=== PATIENT | male | born 1975 | race Hispanic/Latino ===

== ENCOUNTER 2020-07-05 13:40 | Observation (INO) | payer OTHER ==
[~2020-07-05] VITALS: Ht 170.2 cm; Wt 102.1 kg
[2020-07-05] MEDS ORDERED: SODIUM CHLORIDE 0.9% 1000ML 1,000 ML IV SCH (14:15)
--- NOTE | 2020-07-05 14:21 | Emergency Department Note ---
History of Present Illnes History of Present Illness Chief Complaint: Neurological History of Present Illness This is a 44 year old male Chief Complaint Comment SINCE May, PATIENT HAS BEEN DIZZY AND DX WITH VERTIGO. GIVEN MECLIZINE THAT HAS NOT BEEN WORKING. POSITIVE NAUSEA, NO VOMITING. SEEN BY HIS DOCTOR, REFERED TO ENT WHO R/O VERTIGO AND THEN REFERED TO A NEUROLOGIST ON . THEY FEEL HE CAN NOT WAIT THAT LONG. ATTEMPTED TO GO TO WORK BUT WAS WALKING AND BUMPING INTO THINGS. PATIENT FOLLOWING COMMANDS. YESTERDAY BEGAN HAVING BILATERAL CHEST PAIN, WORSE WITH MOVEMENT. Historian: Patient Arrival Mode: Car Additional Treatment HOOK UP: NONE Equip Tech Required: No Onset (how long ago): week(s) (3) Location: Head Quality: Dizzy Radiation: Reports non-radiation Severity: severe Onset quality: gradual Duration (how long): week(s) (3) Progression: worsening Chronicity: new Context: Denies recent illness, Denies recent surgery Relieving factors: none Exacerbating factors: none Associated symptoms: Reports denies other symptoms Treatments prior to arrival: none Past Medical/Family History Physician Review I have reviewed the patient's past medical and family history. Any updates have been documented here. Past Medical History Recent Fever: No Clinical Suspicion of Infectio: No New/Unexplained Change in Ment: No Past Medical History: None Past Surgical History: None Social History Physically hurt or threatened: No Review of Systems Review of Systems Constitutional: Reports as per HPI EENTM: Reports no symptoms Cardiovascular: Reports no symptoms Respiratory: Reports no symptoms Gastrointestinal: Reports no symptoms Genitourinary: Reports no symptoms Musculoskeletal: Reports no symptoms Integumentary: Reports no symptoms Neurological: Reports as per HPI, Reports other (Dizzy) Psychological: Reports no symptoms Endocrine: Reports no symptoms Hematological/Lymphatic: Reports no symptoms Physical Exam Related Data Triage Vital Signs Vital Signs Date Time Temp Pulse Resp B/P (MAP) Pulse Ox O2 Delivery O2 Flow Rate FiO2 07/05/20 14:01 98.1 86 18 154/99 100 Room Air Vital signs reviewed: Yes Physical Exam CONSTITUTIONAL Constitutional: Present well-developed, Present well-nourished HENT HENT: Present normocephalic, Present atraumatic, Present oropharynx clear/moist, Present nose normal HENT L/R: Present left ext ear normal, Present right ext ear normal EYES Eyes: Reports PERRL, Reports conjunctivae normal NECK Neck: Present ROM normal PULMONARY Pulmonary: Present effort normal, Present breath sounds normal CARDIOVASCULAR Cardiovascular: Present regular rhythm, Present heart sounds normal, Present capillary refill normal, Present normal rate GASTROINTESTINAL Abdominal: Present soft, Present nontender, Present bowel sounds normal GENITOURINARY Genitourinary: Present exam deferred SKIN Skin: Present warm, Present dry MUSCULOSKELETAL Musculoskeletal: Present ROM normal NEUROLOGICAL Neurological: Present alert, Present oriented x 3, Present no gross motor or sensory deficits; Absent cranial nerve deficit, Absent abnormal coordination, Absent weakness PSYCHOLOGICAL Psychological: Present mood/affect normal, Present judgement normal Procedures 12 Lead ECG Interpretation ECG Interpretation : ECG: ECG 1 Date: Jul 05, 2020 Rhythm: sinus rhythm Rate: normal BPM: 87 QRS axis: normal ST segments normal: Yes T waves normal: Yes Clinical Impression: normal ECG Assessment & Plan Medical Decision Making MDM 44 y.o M presents for persistent dizziness w/ N/V. Multiple work ups in the past and no relief with meclizine. Exam is unremarkable, no FND, CN II-XII intact.CT head benign, labs WNL. Will admit for persistent dizziness, N/V. Discussed with Dr. Molina who has accepted. Reassessment Reassessment time: 14:21 Reassessment Dizzy Assessment & Plan Final Impression: (1) Vertigo Depart Disposition: ADMITTED Last Vital Signs Date Time Temp Pulse Resp B/P (MAP) Pulse Ox O2 Delivery O2 Flow Rate FiO2 07/05/20 14:01 98.1 86 18 154/99 100 Room Air Medications in the ED Sodium Chloride 1,000 ml @ 0 mls/hr Q0M IV ; Start 07/05/20 at 14:15; Stop 07/05/20 at 15:14; Status UNV KENDALL PERALES MD Jul 05, 2020 14:21
[2020-07-05 15:17] LABS: BASOPHILS # (AUTO) 0.1 (0.0-0.1); BASOPHILS % 0.7 % (0.0-1.0); EOSINOPHILS # (AUTO) 0.2 (0.0-0.4); EOSINOPHILS % 2.5 % (0.0-6.0); HEMATOCRIT 48.9 % (38.2-49.6); HEMOGLOBIN 16.7 g/dL (14.0-18.0); LYMPHOCYTES # (AUTO) 2.9 (1.0-3.2); LYMPHOCYTES % 38.2 % (18.0-39.1); MEAN CORPUSCULAR HEMOGLOBIN 29.3 pg (28-32); MEAN CORPUSCULAR HGB CONC 34.2 g/dL (31-35); MEAN CORPUSCULAR VOLUME 85.8 fL (81-99); MONOCYTES # (AUTO) 0.4 (0.2-0.8); MONOCYTES % 4.7 % (4.4-11.3); NEUTROPHILS % 53.6 % (38.7-80.0); PLATELET COUNT 274 x10e3/uL (140-360); RED CELL DISTRIBUTION WIDTH 13.5 % (11.7-14.4)
--- NOTE | 2020-07-05 15:35 | Diagnostic Imaging Report ---
Examination: CT BRAIN WO History:Dizziness. Comparison studies:None Technique: Axial images were obtained from the skull base to the vertex. Coronal and sagittal images reconstructed from the axial data. Dose modulation, iterative reconstruction, and/or weight based adjustment of the mA/kV was utilized to reduce the radiation dose to as low as reasonably achievable. Intravenous contrast: None Findings: Scalp: No abnormalities. Bones: No fractures, blastic or lytic lesions. Brain sulci: Appropriate for age. Ventricles: Normal in size and configuration. No hydrocephalus. Extra-axial space: No abnormalities. Parenchyma: No abnormal densities. No masses, hemorrhage, or acute or chronic cortical based vascular insults.. Sellar/suprasellar region: No abnormalities. Craniocervical junction: Patent foramen magnum. No Chiari one malformation. Incidental findings: None. Impression: No intracranial abnormalities. Signed by: Dr. Doris Reyes M.D. on 07/05/2020 3:32 PM
[2020-07-05 16:47] LABS: ALANINE AMINOTRANSFERASE 33 IU/L (0-55); ALBUMIN 4.4 g/dL (3.5-5.0); ALBUMIN/GLOBULIN RATIO 1.3 (0.8-2.0); ALKALINE PHOSPHATASE 96 IU/L (40-150); BLOOD UREA NITROGEN 9 mg/dL (7-26); BUN/CREATININE RATIO 10 (6-25); CALCIUM 8.8 mg/dL (8.4-10.2); CARBON DIOXIDE 21 mmol/L (22-29); CHLORIDE 107 mmol/L (98-107); CREATININE, SERUM 0.88 mg/dL (0.72-1.25); EST GLOMERULAR FILTRATION RATE > 60 ML/MIN (60-); GLUCOSE 92 mg/dL (74-118); SODIUM 142 mmol/L (136-145)
--- OUTSIDE RECORDS SUMMARY | 2020-07-05 17:50 | XMS REPORT | Continuity of Care Document ---
Author Author [facility] Organization [facility] Address [address] [place] [address] Phone Unavailable Care Team Providers Care Continuous Improvement Engineer Name Role Phone Jose Maria Britton Attphys Unavailable [employer] Attphys Unavailable Payers Payer Name Policy Type Policy Number Effective Date Expiration Date S ource Problems Condition Name Condition Details Condition Category Status Onset Date Resolution Date Last Treatment Date Treating Clinician Comments Source Lymphadenitis, acute Lymphadenitis, acute Problem HL7.CCDAR2 Active [facility] GERD without esophagitis GERD without esophagitis Problem HL7.CCDAR2 A ctive [facility] Obesity Obesity Problem HL7.CCDAR2 Active [facility] Carpal tunnel syndrome Carpal tunnel syndrome Problem HL7.CCDAR2 Active [facility] Weight gain Weight gain Problem HL7.CCDAR2 Active [facility] Elevated fasting glucose Elevated fasting glucose Problem HL7.CCDAR2 A ctive [facility] Elevated blood pressure reading without diagnosis of h ypertension Elevated blood pressure reading without diagnosis of hypertension Problem HL7.CCDAR2 Active [facility] Memory difficulties Memory difficulties Problem HL7.CCDAR2 Active [facility] Obstructive sleep apnea Obstructive sleep apnea Problem HL7.CCDAR2 Activ [facility] Mixed hyperlipidemia Mixed hyperlipidemia Problem HL7.CCDAR2 Active [facility] 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 Problem HL7.CCDAR 2 Active [facility] Allergies, Adverse Reactions, Alerts Allergy Name Allergy Type Status Severity Reaction(s) Onset Date Inacti ve Date Treating Clinician Comments Source No Known Allergies DA Active U 2020-07-03 00:00:00 [facility] Family History Family Member Diagnosis Comments Start Date Stop Date Source Mother Family history of Alive and well [facility] Father Family history of Alive and well [facility] Social History Smoking Status Start Date Stop Date Source Never smoker [facility] Medications Ordered Medication Name Filled Medication Name Start Date Stop Da te Current Medication? Ordering Clinician Indication Dosage Frequency Signature (SIG) Comments Components Source PriLOSEC OTC 20 MG Oral Tablet Delayed Release PriLOSE C OTC 20 MG Oral Tablet Delayed Release 2017-12-23 00:00:00 Yes ANGE PADMINI P.A. 1 QD TAKE 1 TABLET DAILY. [facility] Vital Signs Vital Name Observation Time Observation Value Comments Source BP Systolic 2017-12-23 12:08:00 132 mm[Hg] Location: [place] [place] on: Sitting [facility] BP Diastolic 2017-12-23 12:08:00 88 mm[Hg] Location: [place] on: Sitting [facility] Height 2017-12-23 12:08:00 67 [in_us] [facility] Weight 2017-12-23 12:08:00 254.3125 [lb_av] [facility] Body Mass Index Calculated 2017-12-23 12:08:00 39.83 kg/m2 [facility] Temperature 2017-12-23 12:08:00 97.9 [degF] Method: Temporal [facility] Respiration Rate 2017-12-23 12:08:00 16 /min [facility] Heart Rate 2017-12-23 12:08:00 83 /min [facility] BP Systolic 2017-11-27 10:09:00 133 mm[Hg] Location: [place]; Positi on: Sitting [facility] BP Diastolic 2017-11-27 10:09:00 86 mm[Hg] Location: [place]; Positi on: Sitting [facility] Height 2017-11-27 10:09:00 67 [in_us] [facility] Weight 2017-11-27 10:09:00 256.5625 [lb_av] [facility] Body Mass Index Calculated 2017-11-27 10:09:00 40.18 kg/m2 [facility] Temperature 2017-11-27 10:09:00 97.4 [degF] Method: Temporal [facility] Respiration Rate 2017-11-27 10:09:00 16 /min [facility] Heart Rate 2017-11-27 10:09:00 79 /min [facility] Procedures Procedure Date / Time Performed Performing Clinician Sourc e [O] Hemoglobin A1c (in office) 2017-12-23 00:00:00 [facility] [[facility]] FOLATE, SERUM 2017-12-23 00:00:00 [facility] [[facility]] VITAMIN B12 2017-12-23 00:00:00 [facility] [[facility]] RPR 2017-12-23 00:00:00 [place] [facility] [[facility]] HEMOGLOBIN A1c 2017-11-28 00:00:00 [facility] [[facility]] CBC (INCLUDES DIFF/PLT) 2017-11-27 00:00:00 [facility] [[facility]] LIPID PANEL 2017-11-27 00:00:00 [facility] [[facility]] CMP W/EGFR 2017-11-27 00:00:00 [facility] [[facility]] TSH, 3RD GENERATION W/REFLEX TO FT4 2017-11-27 00:00:00 [facility] History of no history of surgery [facility] Encounters Start Date/Time End Date/Time Encounter Type Admission Type [facility] Care Department Encounter ID Source 2017-12-23 12:00:00 2017-12-23 12:00:00 Appointment; SYLVIA WASHINGTON P.A. SPOONER, JOSEPH, P.A. [facility] [address] [id number] [facility] 2017-11-27 10:00:00 2017-11-27 10:00:00 Appointment; SYLVIA WASHINGTON P.A. SPOONER, JOSEPH, P.A. [facility] [id number] [facility] Results Test Description Test Time Test Comments Results Result Comments Source CT BRAIN WO 2020-07-05 15:31:00 [place] [address] Patient Name: JAM CHEATHAM MR #: [id number] : 1975 Age/Sex: 44/M Req #: [id number] Adm Physician: Ordered by: Kendall Britton MD Report #: [id number] Location: Room/Bed: Procedure: CT/CT BRAIN WO Exam Date: 07/05/20 Exam Time: 1515 REPORT STATUS: Signed Examination: CT BRAIN WO History:Dizziness. Comparison studies:None Technique: Axial images were obtained from the skull base to the vertex. Coronal and sagittal images reconstructed from the axial data. Dose modulation, iterative reconstruction, and/or weight based adjustment of the mA/kV was utilized to reduce the radiation dose to as low as reasonably achievable. Intravenous contrast: None Findings: Scalp: No abnormalities. Bones: No fractures, blastic or lytic lesions. Brain sulci: Appropriate for age. Ventricles: Normal in size and configuration. No hydrocephalus. Extra-axial space: No abnormalities. Parenchyma: No abnormal densities. No masses, hemorrhage, or acute or chronic cortical based vascular insults.. Sellar/suprasellar region: No abnormalities. Craniocervical junction: Patent foramen magnum. No Chiari one malformation. Incidental findings: None. Impression: No intracranial abnormalities. Signed by: Dr. Tabitha Daley M.D. on 07/05/2020 3:32 PM Dictated By: TABITHA DALEY MD 153 Transcribed By: BRIAN on 07/05/20 153 COPY TO: KENDALL BRITTON MD B-TYPE NATRIURETIC PEPTIDE 2020-07-03 10:13:00 Test Item B-TYPE NATRIURETIC PEPTIDE (test code = BNP) < 5.0 pg/mL 0-100 N [id number] 10:13:00* Test Item Value Reference Range Interpretation Comments D-DIMER (test code = DDIMER) 129 ng/ml < 600 BASIC METABOLIC [id number] 10:05:00* Test Item Value Reference Range Interpretation Comments SODIUM (test code = NA) 139 mmol/L 136-145 N POTASSIUM (test code = K) 4.2 mmol/L 3.5-5.1 N CHLORIDE (test code = CL) 103 mmol/L 101-109 N CARBON DIOXIDE (test code = CO2) 29.4 mmol/L 21-32 N ANION GAP (test code = GAP) 11 mmol/L 10-20 N GLUCOSE (test code = GLU) 97 mg/dL 74-106 N BLOOD UREA NITROGEN (test code = BUN) 12 mg/dL 3-21 N GLOMERULAR FILTRATION RATE (test code = GFR) > 60 mL/min >=60 Estimated GFR by using Modified MDRD formula.Chronic kidney disease is defined as either kidney damageor GFR <60 mL/min/1.73 m2 for >3 months. CREATININE (test code = CREAT) 0.96 mg/dL 0.55-1.3 N BUN/CREATININE RATIO (test code = BUN/CREA) 12.5 10-20 N CALCIUM (test code = CA) 8.3 mg/dL 8.4-10.2 L CREATINE KINASE (CK)2020-07-03 10:05:00* Test Item Value Reference Range Interpretation Comments CREATINE KINASE (CK) (test code = CK) 110 U/L 39-308 N [id number] 10:05:00* Test Item Value Reference Range Interpretation Comments MAGNESIUM (test code = MAG) 1.9 mg/dL 1.6-2.3 N [id number] 10:05:00* Test Item Value Reference Range Interpretation Comments TROPONIN-I (test code = TROPI) <0.015 ng/mL 0.00-0.056 N CBC W/O [id number] 10:00:00* Test Item Value Reference Range Interpretation Comments WHITE BLOOD CELL (test code = WBC) 8.7 K/mm3 4.5-12.5 N RED BLOOD CELL (test code = RBC) 5.16 mill/mm3 4.0-5.8 N HEMOGLOBIN (test code = HGB) 15.4 gram/dL 13.0-17.5 N HEMATOCRIT (test code = HCT) 45.6 % 42.0-52.0 N MEAN CELL VOLUME (test code = MCV) 88.4 fL 80-98 N MEAN CELL HGB (test code = MCH) 29.8 picogram 27.0-33.0 N MEAN CELL HGB CONCETRATION (test code = MCHC) 33.8 gram/dL 33.0-36. 0 N RED CELL DISTRIBUTION WIDTH (test code = RDW) 12.5 % 11.6-16. 2 N RED CELL DISTRIBUTION WIDTH SD (test code = RDW-SD) 41.1 fL 37 .0-51.0 N PLATELET COUNT (test code = PLT) 272 K/mm3 150-450 N MEAN PLATELET VOLUME (test code = MPV) 8.9 fL 6.7-11.0 N BASIC METABOLIC [id number] 10:00:00* Test Item Value Reference Range Interpretation Comments SODIUM (test code = NA) 139 mmol/L 136-145 N POTASSIUM (test code = K) 4.2 mmol/L 3.5-5.1 N CHLORIDE (test code = CL) 103 mmol/L 101-109 N CARBON DIOXIDE (test code = CO2) 29.4 mmol/L 21-32 N ANION GAP (test code = GAP) 11 mmol/L 10-20 N GLUCOSE (test code = GLU) 97 mg/dL 74-106 N BLOOD UREA NITROGEN (test code = BUN) 12 mg/dL 3-21 N GLOMERULAR FILTRATION RATE (test code = GFR) > 60 mL/min >=60 Estimated GFR by using Modified MDRD formula.Chronic kidney disease is defined as either kidney damageor GFR <60 mL/min/1.73 m2 for >3 months. CREATININE (test code = CREAT) 0.96 mg/dL 0.55-1.3 N BUN/CREATININE RATIO (test code = BUN/CREA) 12.5 10-20 N CALCIUM (test code = CA) 8.3 mg/dL 8.4-10.2 L CREATINE KINASE (CK)2020-07-03 10:00:00* Test Item Value Reference Range Interpretation Comments CREATINE KINASE (CK) (test code = CK) IUnit/L 26-208 [id number] 10:00:00* Test Item Value Reference Range Interpretation Comments MAGNESIUM (test code = MAG) mg/dL 1.8-2.4 [id number] 10:00:00* Test Item Value Reference Range Interpretation Comments TROPONIN-I (test code = TROPI) ng/mL 0-0.045 - CT HEAD/BRAIN W/O [id number] 09:56:00 [facility]: [facility] : 1975 Age/S: 44 / M [address] [facility] Unit #: [id number] Loc: [place] [address] Phys: Marcus Jacome MD Acct: [id number] Dis Date: Status: PRE ER PHONE #: [phone] Exam Date: 07/03/2020946 FAX #: [phone] Reason: dizziness EXAMS: CPT CODE: [id number] CT HEAD/BRAIN W/O CONT 52363 REASON FOR EXAM: dizziness EXAM ORDER DATE: 07/03/2020 9:24 AM Ordering: Marcus Jacome MD Attending:Marcus Jacome MD Location: PROCEDURE: - CT HEAD/BRAIN W/O CONT COMPARISON: FINDINGS: CT images of the brain were obtained without IV contrast. Dose modulation, iterative reconstruction, and/or weight based adjustment of the MA/KV was utilized to reduce the radiation dose to as low as reasonably achievable. The brain parenchyma is within normal li mits. The garrett-white matter delineation is unremarkable. The ventricles, c isterns, and sulci are unremarkable. There is no evidence of hemorrhage, m ass, mass effect. There is no evidence of acute or old infarct. The calv arium is intact. IMPRESSION: Unremarkable brain. at 0956 Reported and signed by: Zane Mercado M.D. CC: Jduy Jacome MD Technologist:Marielle Farias CTDI: DLP: Trnscb Date/Time: 07/03/2020 (0956) t.DOMINGUEZR.V TL Orig Print D/T: S: 07/03/2020 (6228) PAGE 1 Signed Report - XR CHEST 1 V 2020-07-03 09:48:00 Name: JAM CHEATHAM [facility] : 1975 Age/S:44 /M [address] [facility] Unit#:[id number] Loc: [place] [address] Phys: Marcus Jacome MD Dis Date: PHONE #: [phone] Status: PRE ER FAX #: [phone] Exam Date: 07/03/2020 Reason: WEAKNESS EXAMS: CPT CODE: [id number] XR CHEST 1 V 95727 REASON FOR EXAM: WEAKNESS EXAM ORDER DATE: 07/03/2020 9:24 AM Ordering: Marcus Jacome MD Attending:Marcus Jacome MD Location:[facility] PROCEDURE: - XR CHEST 1 V COMPARISON: FINDINGS: Portable AP frontal view of the chest obtained at 9:35 AM shows clear lungs without evidence of consolidation. There is no evidence of effusion. The heart size is within normal limits. Pulmonary vasculatures are unremarkable. IMPRESSION: No active disease. at 0948 Reported and signed by: Zane Mercado M.D. CC: Marcus Jacome MD Technologist: Marielle Farias Trnscrpt Data: 07/03/2020 (0948) t.SDR.VTL Orig Print D/T: S: 07/03/2020 (0951) PAGE 1 Signed Report [O] Hemoglobin A1c (in office)2017-12-23 12:23:00* Test Item Value Reference Range Interpretation Comments HEMOGLOBIN A1c; Normal (test code = 4548-4) 5.6 N [facility] [id number] 16:00:00* Test Item Value Reference Range Interpretation Comments Completed (test code = Completed) DONE [facility]] LIPID [id number] 10:38:00* Test Item Value Reference Range Interpretation Comments CHOLESTEROL, TOTAL; Normal (test code = 2093-3) 177 mg/dl <200 N HDL CHOLESTEROL; Below Low Threshold (test code = 2085-9) 34 mg/dl >40 TRIGLYCERIDES; Normal (test code = 2571-8) 146 mg/dl <150 N LDL-CHOLESTEROL; Above High Threshold (test code = 55079-9) 117 {MG/DL NAEL} Reference range: <100 Desirable range <1 00 mg/dL for patients with CHD ordiabetes and <70 mg/dL for diabetic patients withknown heart disease. LDL-C is now calculated using the [place] calculation, which is a validated novel method providing better accuracy than the Friedewald equation in the estimation of LDL-C. Kaden SS et al. PEPPER. 2013;310(19): 1647-3097 (http://education.Handel[employer]raG[employer]/faq/UJF401) CHOL/HDLC RATIO (test code = CHOL/HDLC RATIO) 5.2 {CALC} <5.0 NON HDL CHOLESTEROL (test code = NON HDL CHOLESTEROL) 143 {MG/DL C AL} <130 For patients with diabetes plus 1 major ASCVD risk factor, treating to a non-HDL-C goal of <100 mg/dL (LDL-C of <70 mg/dL) is considered a therapeutic option. [facility]] CMP [id number] 10:38:00* Test Item Value Reference Range Interpretation Comments GLUCOSE; Above High Threshold (test code = 1547-9) 109 mg/dl 65- 99 Fasting reference interval For someone without known diabetes, a glucose valuebetween 100 and 125 mg/dL is consistent withprediabetes and should be confirmed with afollow-up test. UREA NITROGEN (BUN) (test code = UREA NITROGEN (BUN)) 13 mg/dl 7-25 N CREATININE (test code = CREATININE) 0.86 mg/dl 0.60-1.35 N eGFR NON- (test code = eGFR NON-HERMILA N URUGUAYAN) 108 {ML/MIN/1.7} > OR = 60 N eGFR (test code = eGFR ) 12 6 {ML/MIN/1.7} > OR = 60 N BUN/CREATININE RATIO (test code = BUN/CREATININE RATIO) NOT APPLICA BLE 6-22 SODIUM (test code = SODIUM) 140 mmol/L 135-146 N POTASSIUM (test code = POTASSIUM) 4.6 mmol/L 3.5-5.3 N CHLORIDE (test code = CHLORIDE) 103 mmol/L 98-110 N CARBON DIOXIDE (test code = CARBON DIOXIDE) 31 mmol/L 20-31 N CALCIUM (test code = CALCIUM) 9.3 mg/dl 8.6-10.3 N PROTEIN, TOTAL (test code = PROTEIN, TOTAL) 7.3 g/dl 6.1-8.1 N ALBUMIN (test code = ALBUMIN) 4.2 g/dl 3.6-5.1 N GLOBULIN (test code = GLOBULIN) 3.1 {G/DL CALC} 1.9-3.7 N ALBUMIN/GLOBULIN RATIO (test code = ALBUMIN/GLOBULIN RATIO) 1.4 {CALC} 1.0-2.5 N BILIRUBIN, TOTAL; Normal (test code = 91836-9) 0.6 mg/dl 0.2-1.2 N ALKALINE PHSPHATASE (test code = ALKALINE PHSPHATASE) 94 u/l 40-115 N AST; Normal (test code = 1916-6) 21 u/l 10-40 N ALT; Normal (test code = 1742-6) 26 u/l 9-46 N [facility]] CBC (INCLUDES DIFF/PLT)2017-11-27 10:38:00* Test Item Value Reference Range Interpretation Comments WHITE BLOOD CELL COUNT (test code = WHITE BLOOD CELL COUNT) 6.9 {Thousand/u} 3.8-10.8 N RED BLOOD CELL COUNT (test code = RED BLOOD CELL COUNT) 5.14 {Million/uL} 4.20-5.80 N HEMOGLOBIN; Normal (test code = 71224-1) 15.1 g/dl 13.2-17.1 N HEMATOCRIT; Normal (test code = 4544-3) 44.6 % 38.5-50.0 N MCV; Normal (test code = 787-2) 86.8 fL 80.0-100.0 N MCHC; Normal (test code = 49049-3) 33.9 g/dl 32.0-36.0 N RDW; Normal (test code = 788-0) 13.4 % 11.0-15.0 N PLATELET COUNT; Normal (test code = 777-3) 262 {Thousand/u} 140-400 N MPV; Normal (test code = 83578-2) 9.9 fL 7.5-12.5 N ABSOLUTE NEUTROPHILS (test code = ABSOLUTE NEUTROPHILS) 3726 {cells/uL} 0956-4205 N ABSOLUTE LYMPHOCYTES (test code = ABSOLUTE LYMPHOCYTES) 2512 {cells/uL} 850-3900 N ABSOLUTE MONOCYTES (test code = ABSOLUTE MONOCYTES) 428 {cells/uL} 200-950 N ABSOLUTE EOSINOPHILS (test code = ABSOLUTE EOSINOPHILS) 207 {cells/ uL} 15-500 N ABSOLUTE BASOPHILS (test code = ABSOLUTE BASOPHILS) 28 {cells/uL} 0 -200 N NEUTROPHILS (test code = NEUTROPHILS) 54 % N LYMPHOCYTES (test code = LYMPHOCYTES) 36.4 % N MONOCYTES; Normal (test code = 89836-4) 6.2 % N EOSINOPHILS; Normal (test code = 99414-6) 3.0 % N BASOPHILS; Normal (test code = 63509-4) 0.4 % N [facility]] TSH, 3RD GENERATION W/REFLEX TO FT4 2017-11-27 10:38:00* Test Item Value Reference Range Interpretation Comments TSH, 3RD GENERATION W/REFLEX TO FT4 (davon t code = TSH, 3RD GENERATION W/REFLEX TO FT4) 2.59 {MIU/L} 0.40-4.50 N [facility]
--- NOTE | 2020-07-05 18:41 | NUR ---
AAOX3. ACYANOTIC. ARRIVED TO UNIT AT APPROXIMATELY 1838 VIA WHEELCHAIR. RESTING IN BED. NO DISTRESS NOTED. CALL LIGHT IN REACH. SIDE RIALS UP X2. BED LOW AND LOCKED.
--- NOTE | 2020-07-05 20:07 | NUR ---
Voicemail left for Dr. Velazquez regarding this consult.
[2020-07-05 20:23] VITALS: BP 140/85
[2020-07-05] MEDS ORDERED: MECLIZINE HCL12.5 MG PO (20:38)
[2020-07-05 20:54] VITALS: BP 137/70
[2020-07-05 20:58] VITALS: BP 137/70
[2020-07-05] MEDS ORDERED: ONDANSETRON HCL INJ 2MG/ML 2ML 2 MG/ML VIAL IV PRN (21:00)
[2020-07-06] VITALS (8 sets, daily range): BP systolic 119–138; BP diastolic 59–82
--- NOTE | 2020-07-06 07:05 | NUR ---
BEDSIDE SBAR REPORT RECEIVED FROM CRISTIAN CHAPARRO. PATIENT RECEIVED RESTING IN BED EASILY AROUSED IN NO ACUTE DISTRESS. PATIENT IS ABLE TO MAKE NEEDS KNOWN AND DENIES NEEDS AT THIS TIME. PATIENT WAS EDUCATED ON FALL RISK PRECAUTIONS AND VERBALIZED UNDERSTANDING. CALL LIGHT AND BELONGINGS PLACED NEARBY. WILL CONTINUE TO MONITOR.
--- NOTE | 2020-07-06 07:55 | NUR ---
DR. INGRAM CALLED AND MADE AWARE OF CONSULT.
--- NOTE | 2020-07-06 08:00 | NUR ---
RECEIVED CALL FROM BABS ALTMAN, PATIENT'S MOTHER IN LAW, WHO WAS CONCERNED THAT THE PATIENT IS NOT GETTING CONTINUOUS IV FLUIDS. PT REPORTS HE "HAS NOT HAD ANY FLUIDS SINCE ADMISSION". PT'S V/S 127/77, HR 83 O2 96% RA, AFEBRILE. BUN=9 CREATININE=0.[address] LEMUS AND LEFT FOR RETURN CALL.
[2020-07-06] MEDS: MECLIZINE HCL 12.5 MG TAB PO PRN (10:25)
[2020-07-06] MEDS ORDERED: ASPIRIN 81 MG CHEW TAB PO ONE (12:45)
--- NOTE | 2020-07-06 15:06 | Progress Note ---
DATE: Cardiology Progress Note CONSULTING PHYSICIAN: Ovidio Shine MD, Interventional Cardiology. REASON FOR CONSULTATION: Chest pain. HISTORY OF PRESENT ILLNESS: Mr. Cartagena is a pleasant 44-year-old man who presents with complaints of dizziness for the last several days. He reports a history of morbid obesity, otherwise with no prior past medical history. Symptoms are significant and worsen with minimal movement of head or body. He is undergoing evaluation by ENT, possibly Neurology per his report. Over the last 24 hours, he also noted episodes of mid sternal to right-sided chest discomfort, worse with movements of upper extremity or when flexing trunk to sit up right. Symptoms of chest discomfort do not seem to worsen with lying in restful position. He denies any effect of meals or exertion to the chest discomfort that he can recall. However, he has been limited in exertion lately to some extent giving his dizzy spells. REVIEW OF SYSTEMS: A 12-system review is negative except for as noted above includes absence of palpitations, dyspnea, lightheadedness, or syncope. ALLERGIES: NONE REPORTED. PAST MEDICAL HISTORY: Obesity. SOCIAL HISTORY: Denies smoking, alcohol, or drugs. FAMILY HISTORY: Remarkable for mother with unspecified heart disease. PHYSICAL EXAMINATION: VITAL SIGNS: Temperature 97.7, heart rate 83, respiratory rate 20, blood pressure 119/59. GENERAL: In no acute distress. Alert. NECK: No JVD. No carotid bruit. CHEST: Clear to auscultation bilaterally. CARDIOVASCULAR: Regular rate and rhythm. Normal S1, S2. No S3. No S4. No murmurs or rubs. ABDOMEN: Soft. Bowel sounds positive. EXTREMITIES: No edema. Warm extremities. CARDIOVASCULAR MEDICATION: Reviewed. STUDIES: Reviewed. Sodium 142, potassium 4, chloride 107, bicarbonate 21, BUN 9, creatinine 0.88, and glucose 92. White blood cell 7.4, hemoglobin 16.7, and platelets 274. Troponin I 0.018. Total protein 7.8, albumin 4.4, total bilirubin 0.7, AST 21, ALT 33, alkaline phosphatase 96. COVID-19 PCR pending. Telemetry, sinus rhythm. ASSESSMENT AND PLAN: A 44-year-old man presents with atypical chest discomfort with some musculoskeletal features. Also reports of dizziness, undergoing evaluation, morbid obesity. RECOMMEND: Keep on telemetry while in-house. Initial troponin negative, serial cardiac biomarkers pending. Obtain echocardiogram and carotid ultrasound. I suspect musculoskeletal etiology to chest discomfort. I thank, Dr. Molina for the opportunity to participate in the care of Mr. Cartagena. Please feel free to call with any questions, . MD AndujarV/MODL /[id number]
[2020-07-06] MEDS ORDERED: ONDANSETRON HCL 4 MG ORAL DISINTEGRATING TAB PO PRN (15:15)
[2020-07-06] MEDS: ASPIRIN 81 MG CHEW TAB PO SCH (16:01)
--- NOTE | 2020-07-06 18:50 | NUR ---
BEDSIDE SBAR REPORT GIVEN TO CRISTIAN CHAPARRO, PM SHIFT.
[2020-07-06 19:30] LABS: CREATINE KINASE MB 0.5 ng/mL (0-5.0)
[2020-07-06 19:44] LABS: CHOL/HDL RATIO 5.5 (3.9-4.7)
--- NOTE | 2020-07-06 21:53 | Consultation ---
DATE OF CONSULTATION: Neurology Consultation HISTORY OF PRESENT ILLNESS: A 44-year-old male with history of obesity, comes to my attention for vertigo. His vertigo started about three days ago, intermittent, worse yesterday, then had been seen in the emergency room for further evaluation and care. His vertigo gets much worse with eyes open when he looks right or left. His extraocular muscles are intact. No nystagmus sign. He has no auditory dysfunction. His face is symmetric. No ptosis. Pupils reactive. He states he was having some chest discomfort, it worse at rest. When this was starting, better now, admitted for evaluation for cardiac and neurologic . REVIEW OF SYSTEMS: Includes vertigo and chest pain. Otherwise, 14-point review of systems otherwise negative. No nausea or vomiting was expressed. No syncope or presyncopal events noted. No lightheadedness. PHYSICAL EXAMINATION: VITAL SIGNS: Temperature 97.7, heart rate 82 and regular, breathing comfortably on room air, blood pressure 120/62. HEENT: Extraocular muscles intact. Face symmetric. Tongue midline. Speech is clear. Head is normocephalic, atraumatic. CARDIOVASCULAR: Regular rate and rhythm. PULMONARY: Clear to auscultation. ABDOMEN: Soft and nontender. NEUROLOGIC: Shows full nonfocal exam. Extraocular muscles intact. Face symmetric. Tongue is midline. Speech is clear. Strength is 5/5. Reflexes 2/4. No ataxia is noted. ASSESSMENT AND PLAN: Vertigo, likely peripheral. No underlying evidence of focal neurological deficits or brainstem deficits noted on exam. CT scan is read, is normal. Standard MRI if negative, will be reasonable to go home. In the meantime, I will get a lipid panel. Start him on a baby aspirin a day. . KIRA INGRAM MD RR/MODL /[id number]
[2020-07-07] VITALS (9 sets, daily range): BP systolic 123–168; BP diastolic 66–105
[2020-07-07 00:32] LABS: CREATINE KINASE MB 0.4 ng/mL (0-5.0)
[2020-07-07 06:09] LABS: CHOL/HDL RATIO 5.7 (3.9-4.7)
[2020-07-07 06:29] LABS: THYROID STIMULATING HORMONE 1.995 uIU/mL (0.350-4.940)
--- NOTE | 2020-07-07 06:48 | NUR ---
BEDSIDE SBAR REPORT RECEIVED FROM CRISTIAN RN, PM SHIFT. PATIENT FOUND RESTING IN BED EASY TO AROUSE. PT AAOX4, ABLE TO MAKE NEEDS KNOWN, AND DENIES ANY FURTHER NEEDS. PATIENT WAS EDUCATED ON FALL RISK PRECAUTIONS AND VERBALIZED UNDERSTANDING. CALL LIGHT AND BELONGINGS PLACED NEARBY. WILL CONTINUE TO MONITOR.
[2020-07-07] MEDS: MECLIZINE HCL 12.5 MG TAB PO PRN (07:40)
--- NOTE | 2020-07-07 08:07 | NUR ---
SATELLITE TELEMETRY DISCONTINUED TEMPORARILY. PT GOING TO MRI
[2020-07-07] MEDS: ASPIRIN 81 MG CHEW TAB PO SCH (08:26)
--- NOTE | 2020-07-07 08:28 | NUR ---
patient stable 98.1 124/77 72 eomi perrl no nystagmus no ptosis speech clear rrr cta no ataxia a/p positional or peripheral vertigo- no evidence of focal neurological dysfunction daily asa and statin physical and vestibular therapy gait training mri pending
--- NOTE | 2020-07-07 08:54 | NUR ---
PT OFF THE FLOOR FOR BRAIN MRI
--- NOTE | 2020-07-07 10:00 | NUR ---
PT BACK TO FLOOR FROM MRI
--- NOTE | 2020-07-07 11:56 | Discharge Summary ---
HISTORY: Mr. Cartagena is a 44-year-old man who denies any prior medical history. He has been having dizziness for several weeks. He was seen by ENT, who recommended to see a neurologist. He was so dizzy that he came to the emergency room, so he was admitted to the emergency room observation. He is seen by neurologist and court stenographer since he was also complaining of chest pain. So far cardiac enzymes have been negative. PHYSICAL EXAMINATION: GENERAL: Today, he is awake and alert. He is still a little dizzy. VITAL SIGNS: Temperature is 98, blood pressure 131/78. HEART: Regular rate. LUNGS: Clear to auscultation. ABDOMEN: Soft. LABORATORY DATA: On the blood work, white count is 7.47, hemoglobin is 16.7. Cholesterol is 183. COVID test came back negative. Cardiac enzymes negative. Hemoglobin A1c 5.8. Chest CT did not show any obtain carotid Doppler was already done. ASSESSMENT AND PLAN: 1. Dizziness. 2. Atypical chest pain. The plan at present time is workup with echocardiogram and carotid Doppler is negative and if MRI comes back negative, the patient is going to be able to go home on aspirin daily. Follow up with his PCP next week. All this was discussed with the patient. All questions were answered to satisfaction. MD ROSAS Stewart/OSMAN /[id number]
--- NOTE | 2020-07-07 12:00 | NUR ---
DURING BEDSIDE ROUNDS, PT STATES HE IS FEELING MUCH BETTER. THE PATIENT IS ABLE TO SIT UP HOB ELEVATED AT 45 DEGREES AND EYES ARE WIDE OPEN. WILL CONTINUE TO MONITOR.
--- NOTE | 2020-07-07 12:15 | Diagnostic Imaging Report ---
Examination: MRI BRAIN WO History: ^stroke; dizziness. Comparison studies: Head CT dated 07/05/2020. Technique: Sagittal T2; axial DWI, FLAIR, GRE or SWI, T1, Coronal FLAIR. Intravenous contrast: None Findings: Scalp: No abnormal signal. No masses. Bone marrow: Normal in signal intensity. Brain volume: Adequate for age. No volume loss. Ventricles: Normal in size and configuration. No hydrocephalus. Extra-axial spaces: No abnormalities. Parenchyma: No abnormal signal intensities. No masses, hemorrhage, acute or chronic vascular insults. Suprasellar and sellar region: No abnormalities. Craniocervical junction: No abnormalities. The foramen magnum is patent. No Chiari malformations. Vessels: Normal flow-voids in the arteries and sinuses. Additional findings:None. IMPRESSION: No new acute abnormalities when compared to prior head CT dated 07/05/2020. Signed by: Dr. Doris Reyes M.D. on 07/07/2020 12:12 PM
--- NOTE | 2020-07-07 18:08 | NUR ---
PATIENT DISCHARGED VIA PRIVATE VEHICLE. PERIPHERAL IV WAS DISCONTINUED; CATHETER TIP INTACT WITHOUT RESISTANCE; DRY DRESSING APPLIED. PATIENT RECEIVED DISCHARGE SUMMARY AND EDUCATION LEAFLETS. PT VERBALIZED UNDERSTANDING.
--- NOTE | 2020-07-08 02:19 | Progress Note ---
DATE: 07/07/2020 Cardiology Progress Note SUBJECTIVE: Dizzy spells. Denies chest pain or shortness of breath. No other complaints. OBJECTIVE: VITAL SIGNS: Temperature 98.2, heart rate 75, blood pressure 128/76, respiratory rate 20, O2 saturation 98%. GENERAL: No acute distress. Alert. NECK: No JVD. CHEST: Clear to auscultation. CARDIOVASCULAR: Regular rate and rhythm. Normal S1, S2. No S3, no S4. No murmurs or rubs. ABDOMEN: Soft. Bowel sounds positive. EXTREMITIES: No edema. CARDIOVASCULAR MEDICATIONS: Reviewed. STUDIES: Sodium 142, potassium 4, chloride 107, bicarbonate 21, BUN 9, creatinine 0.88, glucose 92. White blood cell count 7.4, hemoglobin 16.7, platelets 274. AST 21, ALT 33, alkaline phosphatase 96, total bilirubin 0.7. ASSESSMENT AND PLAN: vertigo/dizziness. Recommend meclizine trial Brain imaging completed, please refer to report. Imaging studies reviewed From a cardiovascular standpoint, okay to discharge with outpatient followup in 4 weeks. Ovidio Shine MD AFV/MODL /[id number] MTDD
== END 2020-07-07 18:08 | disposition home or self-care (01) ==
LOC: ER 14:21 → ERHOLD 17:16 → MED/SURG2 18:16
PROVIDERS: ADMIT Internal Medicine; ATTEND Internal Medicine
DX: H81.399 Other peripheral vertigo, unspecified ear (principal); R06.02 Shortness of breath; R07.89 Other chest pain
CPT/HCPCS: 36415 ×3; 70450; 70551; 80053; 80061 ×2; 82550 ×2; 82553 ×2; 83036; 84443; 84484 ×3; 85025; 93005; 93306; 93880; 99284; G0378 ×3; J2405; J8597 ×2; Q0162; U0002